=== PATIENT | female | born 1930 | race Caucasian/White ===

== ENCOUNTER 2018-05-03 01:53 | Inpatient (IN) | payer MEDICARE, OTHER ==
[~2018-05-03] VITALS: Ht 165.1 cm; Wt 88.2 kg
[~2018-05-03 01:53] MED LIST: ACET500C15 PO; ALBU6.7H INH; ALLO100T30 PO; BUDE10.2 INH; CHOL10002 PO; CYAN50003 PO; DIGO0.12 PO; DIGO125T PO; DILT90TA PO; DOCU-131 PO; FLUT1BLS INH; FURO-92 PO; FURO-93 PO; FURO40TA6 PO; GUAI600T31 PO; HYPR15DR5 EACHEYE; INSU100I18 SQ-INSULIN; IPRA3AMP30 NPPB; Initiate Coumadin Protocol MC; MAGN400O7 PO; METH500T7 PO; MONT10TA9 PO; MULT-717 PO; Miscellaneous XX; NEBI5TAB2 PO; OMEP40CA6 PO; POLY17PO5 PO; POTA10TA11 PO; POTA10TA5 PO; POTA20TA14 PO; PRED20TA PO; PRED5TAB PO; PRED5TAB27 PO; SODI45SP4 NAS; SPIR25TA PO; SPIR25TA5 PO; TEMA15CA PO; TEMA15CA6 PO; TETRAHYDROZOLINE HCL EACHEYE; VANC1VIA3 PO; WARF1TAB74 PO; WARF2.5T PO; WARF5TAB PO
[2018-05-03] MEDS ORDERED: GLIP5TAB10 PO (02:16)
[2018-05-03] MEDS ORDERED: ZYZAL PO (02:16)
[2018-05-03] MEDS ORDERED: METF500T5 PO (02:16)
[2018-05-03] MEDS ORDERED: TORS20TA2 PO ×3 (02:16)
[2018-05-03 02:19] LABS: MEAN CORPUSCULAR HEMOGLOBIN 30.9 pg (27.0-34.8); MEAN CORPUSCULAR HGB CONC 33.1 g/dL (32.4-35.8); MEAN CORPUSCULAR VOLUME 93.2 fL (80-100); MEAN PLATELET VOLUME 8.6 fL (7.4-10.4); PLATELET COUNT 152 x10^3/uL (130-400); RED BLOOD COUNT 3.61 x10^6/uL (3.82-5.3); RED CELL DISTRIBUTION WIDTH 15.9 % (9.6-15.2)
[2018-05-03] MEDS ORDERED: ONDANSETRON ODT 4 MG ONE (02:21)
[2018-05-03] MEDS ORDERED: MORPHINE SULFATE 4 MG/ML, 1ML ONE (02:22)
[2018-05-03] MEDS: MORPHINE SULFATE 4 MG/ML, 1ML IVPush PRN ×2 (02:25→10:38)
[2018-05-03 02:29] LABS: MICROSCOPIC AUTO
[2018-05-03 02:30] LABS: INTERNATIONAL NORMALIZED RATIO 1.71 (0.93-1.1); PROTHROMBIN TIME 17.4 Seconds (9.6-11.5)
[2018-05-03] MEDS ORDERED: ONDANSETRON 2MG/ML, 2ML IVPush ONE (02:30)
[2018-05-03] MEDS ORDERED: ONDANSETRON ODT 4 MG PO ONE (02:30)
[2018-05-03] MEDS ORDERED: SODIUM CHLORIDE FLUSH 10ML SYR IVF ONE (02:30)
[2018-05-03] MEDS ORDERED: SODIUM CHLORIDE 0.9% 1,000ML IVBOLUS ONE (02:30)
[2018-05-03 02:32] LABS: ANION GAP 8 mmol/L (5-15); CALCIUM 8.9 mg/dL (8.5-10.1); CHLORIDE 102 mmol/L (98-107)
[2018-05-03 02:36] LABS: ALANINE AMINOTRANSFERASE 27 U/L (12-78); ALKALINE PHOSPHATASE 50 U/L (45-117); BILIRUBIN,TOTAL 0.8 mg/dL (0.2-1.0); CREATININE 1.31 mg/dL (0.55-1.02); TOTAL PROTEIN 7.1 g/dL (6.4-8.2)
[2018-05-03 02:38] LABS: CULTURE INDICATED? YES
[2018-05-03 02:48] LABS: BASOPHILS # (AUTO) 0.03 x10^3/uL (0-0.1); BASOPHILS % (AUTO) 0 % (0-1); EOSINOPHILS # (AUTO) 0.21 x10^3/uL (0-0.4); EOSINOPHILS % (AUTO) 2 % (1-7); LYMPHOCYTES % (AUTO) 15 % (22-44); MD SCAN; MONOCYTES # (AUTO) 0.91 x10^3/uL (0.2-0.8); MONOCYTES % (AUTO) 8 % (2-9); NEUTROPHILS # (AUTO) 8.29 x10^3/uL (1.8-6.8); NEUTROPHILS % (AUTO) 75 % (42-75)
[2018-05-03] MEDS ORDERED: CEFTRIAXONE 1,000 MG in SODIUM CHLORIDE 0.9% 50 ML IV ONE (03:00)
[2018-05-03] MEDS ORDERED: OMNIPAQUE 350 MG/ML, 100ML BOTTLE ONE (03:08)
[2018-05-03] MEDS ORDERED: CEFTRIAXONE PMX 1GM/50ML 50 ML ONE (04:07)
[2018-05-03] MEDS ORDERED: SODIUM CHLORIDE 0.9% 1,000 ML IV ONE (04:25)
[2018-05-03] MEDS ORDERED: PROMETHAZINE 25 MG/ML, 1ML IM PRN (04:30)
[2018-05-03] MEDS ORDERED: ONDANSETRON 2MG/ML, 2ML IVPush PRN (04:30)
[2018-05-03] MEDS ORDERED: SODIUM CHLORIDE FLUSH 10ML SYR IVF PRN (04:30)
[2018-05-03] MEDS ORDERED: MORPHINE SULFATE 4 MG/ML, 1ML IVPush PRN (04:30)
[2018-05-03] MEDS ORDERED: PRED10TA PO (04:58)
[2018-05-03 05:00] VITALS: BP 136/79
[2018-05-03 07:40] VITALS: BP 113/70
[2018-05-03] MEDS ORDERED: ACETAMINOPHEN 325 MG TABLET PO PRN (09:30)
[2018-05-03] MEDS ORDERED: POLYETHYLENE GLYCOL 17 GM PACKET PO PRN (09:30)
[2018-05-03] MEDS ORDERED: DOCUSATE 100 MG CAPSULE PO PRN (09:30)
[2018-05-03] MEDS ORDERED: [UNRECOGNIZED DRUG - OTHER] MC SCH (09:30)
[2018-05-03] MEDS: SENNA/DOCUSATE TABLET PO SCH (10:31)
[2018-05-03] MEDS: SODIUM CHLORIDE FLUSH 10ML SYR IVF SCH ×2 (10:31→21:09)
[2018-05-03] MEDS: DIGOXIN 0.125 MG TABLET PO SCH (10:31)
[2018-05-03] MEDS ORDERED: ONDANSETRON ODT 4 MG PO PRN (13:30)
[2018-05-03 14:12] VITALS: BP 131/76
[2018-05-03] MEDS: POTASSIUM CHLORIDE 20 MEQ PACKET PO SCH ×2 (14:32→17:01)
[2018-05-03] MEDS: INSULIN LISPRO 100 UNITS/ML, PEN SQ-INSULIN SCH ×3 (16:00→21:14)
[2018-05-03] MEDS ORDERED: WARFARIN 5 MG TABLET PO-COUM SCH (18:00)
[2018-05-03 19:58] VITALS: BP 138/74
[2018-05-03] MEDS: TORSEMIDE 20 MG TABLET PO SCH (21:09)
[2018-05-04 00:35] VITALS: BP 127/70
[2018-05-04 04:44] LABS: INTERNATIONAL NORMALIZED RATIO 2.18 (0.93-1.1); PROTHROMBIN TIME 22.1 Seconds (9.6-11.5)
[2018-05-04 04:46] LABS: BASOPHILS # (AUTO) 0.03 x10^3/uL (0-0.1); BASOPHILS % (AUTO) 0 % (0-1); EOSINOPHILS # (AUTO) 0.23 x10^3/uL (0-0.4); EOSINOPHILS % (AUTO) 2 % (1-7); LYMPHOCYTES # (AUTO) 0.82 x10^3/uL (1-3.4); LYMPHOCYTES % (AUTO) 8 % (22-44); MD NO; MEAN CORPUSCULAR HGB CONC 33.3 g/dL (32.4-35.8); MEAN CORPUSCULAR VOLUME 93.2 fL (80-100); MEAN PLATELET VOLUME 8.9 fL (7.4-10.4); MONOCYTES # (AUTO) 1.04 x10^3/uL (0.2-0.8); MONOCYTES % (AUTO) 10 % (2-9); NEUTROPHILS # (AUTO) 8.52 x10^3/uL (1.8-6.8); NEUTROPHILS % (AUTO) 80 % (42-75); PLATELET COUNT 146 x10^3/uL (130-400); RED BLOOD COUNT 3.56 x10^6/uL (3.82-5.3); RED CELL DISTRIBUTION WIDTH 16.1 % (9.6-15.2)
[2018-05-04 04:49] LABS: ANION GAP 7 mmol/L (5-15); CALCIUM 9.3 mg/dL (8.5-10.1); CHLORIDE 102 mmol/L (98-107); CREATININE 1.38 mg/dL (0.55-1.02)
[2018-05-04 06:40] VITALS: BP 120/72
[2018-05-04] MEDS: INSULIN LISPRO 100 UNITS/ML, PEN SQ-INSULIN SCH ×3 (07:00→19:25)
[2018-05-04] MEDS ORDERED: BISACODYL 10 MG SUPP PR PRN (09:00)
[2018-05-04] MEDS ORDERED: POLYETHYLENE GLYCOL 17 GM PACKET PO ONE (09:00)
[2018-05-04] MEDS ORDERED: CEFTRIAXONE 1,000 MG in SODIUM CHLORIDE 0.9% 50 ML IV ONE (09:00)
[2018-05-04] MEDS ORDERED: MAGNESIUM CITRATE 300ML ORAL SOL PO PRN (09:00)
[2018-05-04] MEDS ORDERED: MONTELUKAST 10 MG TABLET PO SCH (09:00)
[2018-05-04] MEDS ORDERED: ALLOPURINOL 100 MG TABLET PO SCH (09:00)
[2018-05-04] MEDS: SENNA/DOCUSATE TABLET PO SCH (10:06)
[2018-05-04] MEDS: DIGOXIN 0.125 MG TABLET PO SCH (10:06)
[2018-05-04] MEDS: SODIUM CHLORIDE FLUSH 10ML SYR IVF SCH (10:07)
[2018-05-04] MEDS: POTASSIUM CHLORIDE 20 MEQ PACKET PO SCH ×3 (10:07→19:24)
[2018-05-04 12:43] VITALS: BP 138/68
[2018-05-04] MEDS ORDERED: CEFD300C37 PO (13:19)
[2018-05-04] MEDS ORDERED: WARFARIN 1 MG TABLET PO-COUM SCH (18:00)
[2018-05-04] MEDS: TORSEMIDE 20 MG TABLET PO SCH (20:18)
[2018-05-05] MEDS ORDERED: CEFDINIR 300 MG CAPSULE PO SCH (09:00)
== END 2018-05-04 20:32 | disposition home or self-care (01) | DRG 372 ==
LOC: ED 02:19 → EDIP 04:25 → 3NW 05:08
PROVIDERS: ADMIT Internal Medicine; ATTEND Internal Medicine
DX: A04.9 Bacterial intestinal infection, unspecified (principal); N39.0 Urinary tract infection, site not specified; I10 Essential (primary) hypertension; E11.9 Type 2 diabetes mellitus without complications; J44.9 Chronic obstructive pulmonary disease, unspecified; M06.9 Rheumatoid arthritis, unspecified; I27.20 Pulmonary hypertension, unspecified; B96.89 Other specified bacterial agents as the cause of diseases classified elsewhere; E78.5 Hyperlipidemia, unspecified; E87.6 Hypokalemia; I48.91 Unspecified atrial fibrillation; M19.90 Unspecified osteoarthritis, unspecified site; Z88.2 Allergy status to sulfonamides; Z66 Do not resuscitate; Z88.8 Allergy status to other drugs, medicaments and biological substances; Z79.01 Long term (current) use of anticoagulants; Z79.52 Long term (current) use of systemic steroids; Z90.710 Acquired absence of both cervix and uterus; Z80.0 Family history of malignant neoplasm of digestive organs; Z82.49 Family history of ischemic heart disease and other diseases of the circulatory system
CPT/HCPCS: 36415; 74177; 80048; 80053; 81001; 82962; 83690; 85025; 85610; 85730; 87077; 87086; 87186; 93005; 96361; 96374; 96375; 99285; J0696; J2405; Q9967; J1815; J7030; J7512